=== PATIENT | female | born 1980 | race Two or more races ===

== ENCOUNTER 2018-03-28 17:53 | Emergency (ER) | payer MEDICAID ==
[~2018-03-28] VITALS: Ht 162.6 cm; Wt 67.1 kg
[2018-03-28] MEDS ORDERED: [UNRECOGNIZED DRUG - CODE] PO (18:07)
[2018-03-28] MEDS ORDERED: ALBU8HFA4 INH (18:07)
--- NOTE | 2018-03-28 18:13 | NUR ---
PATIENT ALERT, ORIENTED X4 WALKING TO ER AMBULATORY WITH STEADY GAIT C/O NAUSEA VOMITING, DENIES ABDOMINAL PAIN, DIARRHEA.
[2018-03-28] MEDS ORDERED: HYDROMORPHONE 1 MG/1 ML DISP.SYRIN ONE (19:17)
[2018-03-28] MEDS ORDERED: ASPIRIN 81 MG TAB.CHEW ONE (19:17)
[2018-03-28] MEDS ORDERED: ONDANSETRON 4 MG/2 ML VIAL ONE ×2 (19:17→19:55)
[2018-03-28] MEDS: ASPIRIN 81 MG TAB.CHEW PO ONE (19:20)
[2018-03-28] MEDS: ONDANSETRON 4 MG/2 ML VIAL IV ONE (19:20)
[2018-03-28] MEDS: IV NORMAL SALINE 1000 ML BAG IV ONE (19:21)
[2018-03-28] MEDS: HYDROMORPHONE 1 MG/1 ML DISP.SYRIN IV ONE ×2 (19:21→20:54)
--- NOTE | 2018-03-28 19:23 | NUR ---
REPORT ENDORSED TO NURSE MARKHAM AT BEDSIDE ALL QUESTIONS ANSWERED.
[2018-03-28 19:27] LABS: ABG BASE EXCESS -1.1 mmol/L; ABG HCO3 19.9 mmol/L; ABG PCO2 24.8 mmHg (35.0-45.0); ABG PH 7.522 (7.350-7.450); ABG PO2 81.1 mmHg (75.0-100.0); ABG SITE LEFT RADIAL; VENT MODE ROOM AIR
[2018-03-28 19:29] LABS: CREATININE 0.8 mg/dL (0.6-1.3); POTASSIUM 3.5 mmol/L (3.5-5.1)
[2018-03-28 19:30] LABS: *BILIRUBIN,URIN NEGATIVE (NEGATIVE); *BLOOD, URINE 1+ (NEGATIVE); *CLARITY,URINE SLIGHTLY CLOUDY (CLEAR); *COLOR,URINE YELLOW (YELLOW); *KETONES,URINE NEGATIVE (NEGATIVE); *UROBILINOGEN,URINE 0.2 E.U./dl (NORMAL); LEUKOCYTE ESTERASE ,URINE TRACE (NEGATIVE); NITRITE, URINE NEGATIVE (NEGATIVE); UGLUCOSE NEGATIVE (NEGATIVE)
[2018-03-28 19:31] LABS: BASOPHILS # (AUTO) 0.1 K/uL (0.0-8.0); BASOPHILS % (AUTO) 1.1 % (0.0-2.0); EOSINOPHILS # (AUTO) 0.1 K/uL (0.0-0.7); EOSINOPHILS % (AUTO) 0.8 % (0.0-7.0); HEMATOCRIT 35.8 % (31.2-41.9); HEMOGLOBIN 12.2 g/dL (10.9-14.3); LYMPHOCYTES # (AUTO) 3.5 K/uL (20.0-40.0); MEAN CORPUSCULAR HEMOGLOBIN 29.8 uug (24.7-32.8); MEAN CORPUSCULAR HGB CONC 34 g/dL (32.3-35.6); MEAN CORPUSCULAR VOLUME 87.4 fL (75.5-95.3); MONOCYTES # (AUTO) 0.8 K/uL (2.0-10.0); MONOCYTES % (AUTO) 7.1 % (0.0-11.0); NEUTROPHILS # (AUTO) 6.5 K/uL (1.8-8.9); PLATELET COUNT (AUTO) 383 K/uL (179-408)
[2018-03-28 19:41] LABS: BACTERIA,URINE FEW /HPF (NONE SEEN); RBC,URINE 0-3 /HPF (0-3); SQUAMOUS EPITHELIAL CELL,UR FEW /HPF (NONE SEEN)
[2018-03-28 19:42] LABS: BILIRUBIN,DIRECT 0.1 mg/dL (0.0-0.2); BILIRUBIN,TOTAL 0.2 mg/dL (0.2-1.0); TOTAL PROTEIN, SERUM 7.9 g/dL (6.4-8.2)
[2018-03-28] MEDS: ONDANSETRON IV *ER 4 MG/2 ML VIAL IV ONE (19:59)
[2018-03-28] MEDS ORDERED: GUAIFENESIN/CODEINE 5 ML LIQUID UDC ONE (20:10)
[2018-03-28] MEDS ORDERED: NORMAL SALINE FLUSH 10 ML DISP.SYRIN ONE (20:39)
[2018-03-28] MEDS ORDERED: IOHEXOL 350 100 ML INFUS..BTL ONE (20:39)
[2018-03-28] MEDS ORDERED: SWABABLE VALVE TRANSFER SET EA MC ONE (20:39)
[2018-03-28] MEDS ORDERED: IV NORMAL SALINE 250 ML IV ONE (20:39)
[2018-03-28] MEDS: LORAZEPAM 2 MG/1 ML VIAL IV ONE (20:53)
[2018-03-28] MEDS ORDERED: HYDROMORPHONE 2 MG/1 ML DISP.SYRIN ONE (20:53)
[2018-03-28] MEDS ORDERED: LORAZEPAM 2 MG/1 ML VIAL ONE (20:54)
[2018-03-28] MEDS ORDERED: METOCLOPRAMIDE HCL 10 MG/2 ML VIAL ONE (21:42)
[2018-03-28] MEDS ORDERED: diphenhydrAMINE 50 MG/1 ML VIAL ONE (21:42)
[2018-03-28] MEDS: METOCLOPRAMIDE HCL 10 MG/2 ML VIAL IV ONE (21:55)
[2018-03-28] MEDS: diphenhydrAMINE 50 MG/1 ML VIAL IV ONE (21:55)
--- NOTE | 2018-03-28 22:57 | NUR ---
Patient discharged to home in stable conditon. Written and verbal after care instructions given. Patient verbalizes understanding of instructions.
== END 2018-03-28 22:59 | disposition home or self-care (01) ==
LOC: ER 17:55
DX: R07.9 Chest pain, unspecified (principal); R00.2 Palpitations; R10.32 Left lower quadrant pain; R06.00 Dyspnea, unspecified; R10.2 Pelvic and perineal pain; R11.2 Nausea with vomiting, unspecified; R20.2 Paresthesia of skin; F41.9 Anxiety disorder, unspecified; J45.909 Unspecified asthma, uncomplicated; Z79.899 Other long term (current) drug therapy
CPT/HCPCS: 36415; 36600; 71045; 71275; 74176; 76856; 80048; 80076; 81001; 83690; 83880; 84484 ×2; 84702; 85025; 85379; 93005; 93970; 96374; 96375; 96376; 99285; J1170 ×2; J1200; J2060; J2405 ×2; J2765; Q9967; 70030-TC; A4663; J3490; J7030; J7050

== ENCOUNTER 2018-04-20 18:45 | Emergency (ER) | payer MEDICAID ==
[~2018-04-20] VITALS: Ht 160 cm; Wt 63.0 kg
[~2018-04-20 18:45] MED LIST: ALBU8HFA4 INH; [UNRECOGNIZED DRUG - CODE] PO
--- NOTE | 2018-04-20 19:14 | NUR ---
Dr. Pinto at bedside for MSE
[2018-04-20] MEDS ORDERED: ONDANSETRON ODT 4 MG TAB.RAPDIS ONE (19:21)
[2018-04-20] MEDS ORDERED: OXYCODONE/APAP 5-325 MG TABLET ONE ×3 (19:22→20:53)
[2018-04-20] MEDS ORDERED: OXYCODONE/APAP 5-325 MG TABLET PO ONE ×2 (19:30→20:45)
[2018-04-20] MEDS ORDERED: ONDANSETRON ODT 4 MG TAB.RAPDIS SL ONE (19:30)
--- NOTE | 2018-04-20 20:54 | NUR ---
Patient discharged to home in stable conditon. Written and verbal after care instructions given. Patient verbalizes understanding of instructions. Patient instructed not to drive. Patient ambulated out of ER with stable gait. All belongings taken.
[2018-04-20 20:55] VITALS: BP 110/74
== END 2018-04-20 20:56 | disposition home or self-care (01) ==
LOC: ER 18:47
DX: N80.9 Endometriosis, unspecified (principal); G89.29 Other chronic pain; R10.2 Pelvic and perineal pain; R11.0 Nausea; J45.909 Unspecified asthma, uncomplicated; Z79.899 Other long term (current) drug therapy
CPT/HCPCS: 76856; A4663; Q0162